=== PATIENT | female | born 1975 | race Caucasian/White ===

== ENCOUNTER 2018-03-29 15:00 | Emergency (ER) | payer OTHER ==
[2018-03-29 15:05] VITALS: BP 128/81
== END 2018-03-29 16:33 | disposition left against medical advice (07) ==
LOC: ED 15:00
DX: R10.9 Unspecified abdominal pain (principal); Z53.21 Procedure and treatment not carried out due to patient leaving prior to being seen by health care provider

== ENCOUNTER 2018-03-30 12:03 | Emergency (ER) | payer OTHER ==
[2018-03-30] MEDS ORDERED: NS 0.9% 1000 ML* 1,000 ML IV ONE ×2 (13:57→14:58)
[2018-03-30 14:41] LABS: ABS Basophils 0 10^3/ul (0-0.2); ABS Eosinophils 0.1 10^3/ul (0-0.6); ABS Lymphocytes 1.9 10^3/ul (1.0-4.8); ABS Monocytes 0.6 10^3/ul (0-0.8); ABS Neutrophils 7.8 10^3/ul (1.5-7.7); ABS Nucleated RBC 0 10^3/ul; Eosinophil % 1.1 % (0-6); Hematocrit 33 % (35-47); Hemoglobin 11.2 g/dl (12.0-16.0); Lymphocyte % 17.8 % (25-47); Mean Corpuscular HGB Conc 34 g/dl (31-36); Mean Corpuscular Hemoglobin 32 pg (27-31); Mean Corpuscular Volume 93 fL (80-97); Mean Platelet Volume 7.1 um3 (7.4-10.4); Nucleated Red Blood Cells % 0; Platelet Count 258 10^3/ul (150-450); Red Blood Count 3.56 10^6/ul (4.0-5.4); Red Cell Distribution Width 13 % (10.5-15); White Blood Count 10.4 10^3/ul (3.5-10.8)
[2018-03-30 14:50] LABS: INR 0.97 (0.77-1.02)
[2018-03-30] MEDS ORDERED: Metoclopramide IV* 5 MG/ML 2 ML VIAL IV ONE (14:58)
[2018-03-30] MEDS ORDERED: Ketorolac INJ* 30 MG/ML 1 ML VIAL IV PUSH ONE (14:58)
[2018-03-30 15:04] LABS: EGFR Non-African American 91.3 (>60)
--- NOTE | 2018-03-30 15:52 | RAD ---
INDICATION: Abdominal pain evaluate for common bile duct stone. COMPARISON: There are no prior studies available for comparison. TECHNIQUE: Multiple real-time images of the right upper quadrant were obtained. FINDINGS: The patient is status post cholecystectomy. No intrahepatic ductal distention is seen. There is mild prominence of the common bile duct likely representing postcholecystectomy changes. The common bile duct measured 0.7 cm in diameter. No intraluminal filling defect or calculus is seen. The liver is normal in size without significant focal abnormality. The pancreas is partially obscured by overlying bowel gas. No pancreatic ductal distention is seen. The right kidney is normal in size without evidence for hydronephrosis. IMPRESSION: STATUS POST CHOLECYSTECTOMY. THERE IS MILD PROMINENCE OF THE COMMON BILE DUCT WHICH LIKELY REPRESENTS POSTCHOLECYSTECTOMY CHANGES. IF THE PATIENT'S SYMPTOMS PERSIST CONSIDER AN MRCP STUDY FOR FURTHER EVALUATION.
[2018-03-30 16:24] LABS: Urine Appearance Cloudy; Urine Blood Negative (Negative); Urine Color Yellow; Urine Ketones Negative (Negative); Urine Protein Negative (Negative); Urine Specific Gravity 1.021 (1.010-1.030); Urine Urobilinogen Negative (Negative)
[2018-03-30 17:25] VITALS: BP 117/65
--- NOTE | 2018-03-30 17:52 | ED ---
Caesar Lutz Jennifer, scribed for Charbel Hughes MD on 03/30/18 at 1434 . Abdominal Pain/Female - HPI Summary HPI Summary: The patient is a 42 year old female who presents with RUQ and epigastric abdominal pain for one week. The patient reports it is sharp pain that worsened this morning to a 10/10. She additionally complains of nausea. She denies vomiting, fevers, coughing, and dysuria. Patient reports a history of heather and appy - History of Current Complaint Chief Complaint: EDAbdPain Stated Complaint: RT SIDED PAIN Time Seen by Provider: 03/30/18 13:58 Hx Obtained From: Patient Onset/Duration: Sudden Onset, Lasting Weeks - 1 week, Still Present, Worse Since - this morning Timing: Constant Severity Initially: Severe Severity Currently: Severe Pain Intensity: 10 Pain Scale Used: 0-10 Numeric Location: Discrete At: RUQ Radiates: No Character: Sharp Aggravating Factor(s): Nothing Alleviating Factor(s): Nothing Associated Signs and Symptoms: Positive: Other: - nausea. NEGATIVE: vomiting, fevers, coughing, dysuria. Allergies/Adverse Reactions: Allergies Allergy/AdvReac Type Severity Reaction Status Date / Time Sulfa (Sulfonamide Allergy Unknown Verified 03/30/18 12:13 Antibiotics) Reaction Details PMH/Surg Hx/FS Hx/Imm Hx Endocrine/Hematology History: Denies: Hx Diabetes Cardiovascular History: Denies: Hx Hypertension History: Denies: Hx Kidney Stones - Surgical History Surgery Procedure, Year, and Place: Cholecystectomy, Appendectomy, Hysterectomy Infectious Disease History: No Infectious Disease History: Denies: Traveled Outside the [place] in Last 30 Days - Family History Known Family History: Negative: Renal Disease - Social History Alcohol Use: None Substance Use Type: Reports: Marijuana Smoking Status (MU): Former Smoker Review of Systems Negative: Fever Negative: Cough Positive: Abdominal Pain, Nausea. Negative: Vomiting Negative: dysuria All Other Systems Reviewed And Are Negative: Yes Physical Exam - Summary Physical Exam Summary: GENERAL: ~Patient is a well developed and nourished F who is lying comfortable in the stretcher. ~Patient is not in any acute respiratory distress. HEAD AND FACE: Normocephalic EYES: PERRLA, EOMI x 2. EARS: Hearing grossly intact. MOUTH: Oropharynx within normal limits. NECK: Supple, trachea is midline, no adenopathy, no JVD, no carotid bruit. CHEST: Symmetric, no tenderness at palpation LUNGS: Clear to auscultation bilaterally. No wheezing or crackles. CVS: Regular rate and rhythm, S1 and S2 present, no murmurs or gallops appreciated. ABDOMEN: Soft, tender in epigastrium and RUQ. Bowel sounds are normal. No abdominal abnormal pulsations. EXTREMITIES: Full ROM in all major joints, no edema, no cyanosis or clubbing. NEURO: Alert and oriented x 3. No acute neurological deficits. Speech is normal and follows commands. SKIN: Dry and warm Triage Information Reviewed: Yes Vital Signs On Initial Exam: Initial Vitals Temp Pulse Resp BP Pulse Ox 98.3 F 73 20 138/71 100 03/30/18 12:13 03/30/18 12:13 03/30/18 12:13 03/30/18 12:13 03/30/18 12:13 Vital Signs Reviewed: Yes Diagnostics - Vital Signs Vital Signs Temp Pulse Resp BP Pulse Ox 03/30/18 14:17 61 133/76 100 03/30/18 14:00 67 98 03/30/18 13:47 72 128/79 99 03/30/18 13:17 61 133/79 100 03/30/18 13:16 62 100 03/30/18 12:13 98.3 F 73 20 138/71 100 - Laboratory Result Diagrams: 03/30/18 14:28 03/30/18 14:28 Lab Statement: Any lab studies that have been ordered have been reviewed, and results considered in the medical decision making process. - Additional Comments Diagnostic Additional Comments: Abdominal US. Interpreted by a radiologist. IMPRESSION: STATUS POST CHOLECYSTECTOMY. THERE IS MILD PROMINENCE OF THE COMMON BILE DUCT WHICH LIKELY REPRESENTS POSTCHOLECYSTECTOMY CHANGES. IF THE PATIENT'S SYMPTOMS PERSIST CONSIDER AN MRCP STUDY FOR FURTHER EVALUATION. Dr. Hughes has reviewed this report. Abdominal Pain Fem Course/Dx - Course Course Of Treatment: The patient is a 42 year old female who presents with sharp RUQ and epigastric abdominal pain for one week that worsened this morning. In the ED course the patient was given IV fluids. Bloodwork and Urinalysis were obtained. US Abdomen showed STATUS POST CHOLECYSTECTOMY. THERE IS MILD PROMINENCE OF THE COMMON BILE DUCT WHICH LIKELY REPRESENTSP OSTCHOLECYSTECTOMY CHANGES. The patient was diagnosed with epigastric pain. Patient is instructed to follow up with GI. Patient is much improved. Strict return precautions given - Diagnoses Provider Diagnoses: Epigastric pain Discharge - Sign-Out/Discharge Documenting (check all that apply): Discharge/Admit/Transfer - Discharge Plan Condition: Stable Disposition: HOME Prescriptions: Pantoprazole TAB (NF) [Protonix TAB (NF)] 20 mg PO DAILY #30 tab Patient Education Materials: Abdominal Pain (ED) Referrals: [facility] [Outside] Oswaldo Vital MD [Medical Doctor] - Additional Instructions: Follow up with Dr. Vital, Gastroenterology, in three days. Return to the emergency department for any new or worsening symptoms. - Billing Disposition and Condition Condition: STABLE Disposition: HOME The documentation as recorded by the Caesar poon Jennifer accurately reflects the service I personally performed and the decisions made by , Charbel Hughes MD.
== END 2018-03-30 17:26 | disposition home or self-care (01) ==
LOC: ED 12:03
DX: R10.13 Epigastric pain (principal); R11.0 Nausea; Z87.891 Personal history of nicotine dependence
CPT/HCPCS: 36415; 76705; 80053; 81003; 83605; 83690; 84702; 85025; 85610; 85730; 86140; 96374; 96375; 99282; J1885; J2765